=== PATIENT | male | born 1930 | race Caucasian/White ===

== ENCOUNTER → 2016-04-19 | Outpatient (CLI) | payer MEDICARE, BC ==
[2016-04-19 12:43] LABS: CHLORIDE,CL 101 mmol/L (98-110); SODIUM,NA 137 mmol/L (136-146)
== END | disposition home or self-care (01) ==
LOC: MW.CHFP 11:52
PROVIDERS: ATTEND Emergency Medicine
DX: R10.9 Unspecified abdominal pain (principal); R63.4 Abnormal weight loss; R06.09 Other forms of dyspnea; R42 Dizziness and giddiness
CPT/HCPCS: 36415; 80053; 84443; G0463

== ENCOUNTER → 2016-04-27 | Outpatient (CLI) | payer MEDICARE, BC ==
[~2016-04-27] MED LIST: Iopamidol 755 MG/ML 500 ML Multipack Bottle IVPUSH STA
--- NOTE | 2016-04-28 10:27 | CT ---
EXAM DATE: 04/27/16 PATIENT'S AGE: 86 Patient: MCKENZIE ELDER Facility: [place], [place] Site . Site : 1930 Study: CT Abdomen/Pelvis [id number]/31/2017 5:50:24 PM Ordering Physician: Judy Luong Final Report: INDICATION: Abdominal pain. Technique: Contrast-enhanced CT abdomen pelvis with coronal sagittal reformat images obtained. Comparison: No comparison studies are available. Findings: Normal heart size. Coronary artery calcifications. Mild basilar fibrotic change. No effusion. No pericardial effusion. Multiple cysts are seen in the liver. No biliary dilatation. Spelled granulomas. Pancreas is unremarkable. Bilateral diffuse thickening of the adrenal gland [id number] without discrete nodule seen. Bilateral renal cysts. No hydronephrosis. Left posterior cortical thinning /scarring. No nephrolithiasis. Infrarenal abdominal aortic aneurysm measuring 5 cm on image 77 with mural thrombus. Mild prominence of the common iliac arteries measuring 1.6 on the right and 1.3 on the left. Urinary bladder is unremarkable. Prostate gland mildly prominent. Diverticulosis. The bowel is unremarkable. Mild fat containing umbilical hernia. Diffuse moderate to advanced degenerative changes of the lumbar spine with grade 2 anterolisthesis of L5 on S1. Postsurgical changes of the left hip. Impression: 1. Infrarenal 5 cm abdominal aortic aneurysm. Mild prominence of the bilateral common iliac arteries measuring 1.6 on the right and 1.3 cm on the left. 2. No acute findings in the abdomen or pelvis. 3. Diverticulosis. 4. Liver cysts and renal cysts. Dictated by Anjana Matos MD @ Apr 28 2016 7:50AM (Electronic Signature) Report Signed by Proxy and Original Signed Document filed in the Medical Record. GARRICK
== END | disposition home or self-care (01) ==
LOC: MW.CHFP 13:17
PROVIDERS: ATTEND Physician Assistant
DX: R10.9 Unspecified abdominal pain (principal); I71.4 Abdominal aortic aneurysm, without rupture; K57.90 Diverticulosis of intestine, part unspecified, without perforation or abscess without bleeding; K76.89 Other specified diseases of liver; N28.1 Cyst of kidney, acquired; R63.4 Abnormal weight loss; N39.0 Urinary tract infection, site not specified
CPT/HCPCS: 74177; 81001; Q9967

== ENCOUNTER 2016-05-26 13:21 | Emergency (ER) | payer MEDICARE, BC ==
--- NOTE | 2016-05-26 13:41 | EDM.PDOC ---
ED HPI GENERAL MEDICAL PROBLEM - General Chief Complaint: Genitourinary Problem Stated Complaint: UNK Time Seen by Provider: 05/26/16 13:34 - History of Present Illness INITIAL COMMENTS - FREE TEXT/NARRATIVE: HISTORY AND PHYSICAL: History of present illness: The patient is an 86-year-old male with a history of a left femur fracture on May 02 and was transferred after initially presenting here. He is being followed with his rehabilitation at [facility] and presents today in acute urinary retention. According to reports he had a Rojas in place which was removed yesterday and he has only been dribbling urine since that time. Bladder scan at the alf revealed 800 cc of urine in the attempted [address] Rojas and were unable so he was sent here to our ER for Rojas catheter placement. The patient has a history of fluid retention and a joint effusion on his right knee and had a venous Doppler of his leg just recently on May 24 that was negative. The patient has no other complaints and in fact states that he doesn't even feel like his bladder is distended. The patient has an appointment for followup with a urologist, Dr. Paz. He had prostate surgery many years ago here with our urologist but does not follow with him anymore. Review of systems: As per history of present illness and below otherwise all systems reviewed and negative. Past medical history: As per history of present illness and as reviewed below otherwise noncontributory. Surgical history: As per history of present illness and as reviewed below otherwise noncontributory. Social history: No reported history of drug or alcohol abuse. Family history: As per history of present illness and as reviewed below otherwise noncontributory. Physical exam: General: Well-developed elderly man who is nontoxic and in no overt distress. His vitals have been reviewed by me HEENT: Atraumatic, normocephalic, negative for conjunctival pallor or scleral icterus, mucous membranes moist, throat clear, neck supple, nontender, trachea midline. Lungs: Clear to auscultation with slightly diminished breath sounds at the bases , breath sounds equal bilaterally, chest nontender. Heart: S1S2, regular in rhythm no overt murmurs Abdomen: Soft, nondistended, nontender. Hypoactive bowel sounds Pelvis: Stable nontender. Genitourinary: Deferred. Rectal: Deferred. Extremities: Atraumatic splints are seen on bilateral legs and were not removed Neurovascular unremarkable. Neuro: Awake, alert, oriented. Motor and sensory unremarkable throughout. Exam nonfocal. Diagnostics: Therapeutics: rojas placement Rojas was placed by nursing without difficulty and the patient will be sent back to the alf Impression: Urinary retention after Rojas removal with history of same Definitive disposition and diagnosis as appropriate pending reevaluation and review of above. - Related Data Allergies Allergy/AdvReac Type Severity Reaction Status Date / Time acyclovir Allergy Other Verified 05/02/16 00:26 latanoprost Allergy Other Verified 05/02/16 02:25 sulfamethoxazole Allergy Other Verified 05/02/16 02:25 [From Bactrim] trimethoprim [From Bactrim] Allergy Other Verified 05/02/16 02:25 Home Meds: Home Meds Acetaminophen [Tylenol] 325 mg PO 05/02/16 [History] Albuterol Sulfate [Proventil Hfa] 6.7 gm IH 05/02/16 [History] Aspirin 81 mg PO BRK 05/02/16 [History] Calcium Citrate/Vitamin D3 [Calcium Cit-Vit D 250-200] 1 each PO 05/02/16 [ History] Fluticasone Propionate [Flovent Diskus] 50 mcg IH 05/02/16 [History] Hydrochlorothiazide 50 mg PO DAILY 05/02/16 [History] Lisinopril 40 mg PO DAILY 05/02/16 [History] Metoprolol Tartrate 100 mg PO DAILY 05/02/16 [History] Multivitamin with Minerals [Multiple Vitamin] 1 tab PO DAILY 05/02/16 [History] Omeprazole 20 mg PO 05/02/16 [History] PEG 400/Hypromellose/Glycerin [Artificial Tears Drops] 1 drop EYEBOTH ASDIRECTED PRN 05/02/16 [History] Potassium Citrate [Potassium Citrate ER] 10 meq PO 05/02/16 [History] Sertraline HCl 100 mg PO 05/02/16 [History] Triamcinolone Acetonide [Triamcinolone Acetonide 0.1% Crm] 1 dose TOP ASDIRECTED 05/02/16 [History] Past Medical History HEENT History: Reports: Impaired vision Cardiovascular History: Reports: Hypertension Respiratory History: Reports: None Gastrointestinal History: Reports: None, Other (see below) Other Gastrointestinal History: pt reports abdominal aneurism Genitourinary History: Reports: None Neurological History: Reports: None Psychiatric History: Reports: None - Infectious Disease History Infectious Disease History: Reports: None - Past Surgical History HEENT Surgical History: Reports: Eye surgery Male Surgical History: Reports: None Musculoskeletal Surgical History: Reports: Hip replacement Social & Family History - Family History Family Medical History: Noncontributory - Tobacco Use Smoking Status *Q: Former Smoker - Recreational Drug Use Recreational Drug Use: No ED ROS GENERAL - Review of Systems Review Of Systems: ROS reveals no pertinent complaints other than HPI. ED EXAM, GENERAL - Physical Exam Exam: See Below (See dictation) Course - Vital Signs Last Recorded V/S: Last Vital Signs Temp 37.2 C 05/26/16 13:43 Pulse 89 05/26/16 13:43 Resp 16 05/26/16 13:43 BP 139/78 05/26/16 13:43 Pulse Ox 94 L 05/26/16 13:43 - Orders/Labs/Meds Orders: Active Orders 24 hr Category Date Time Status Insert Rojas Catheter [Insert Urinary Catheter] [OM.PC] Care 05/26/16 13:45 Ordered Q24H Urinary Catheter Assessment [RC] ASDIRECTED Care 05/26/16 13:37 Active Departure - Departure Time of Disposition: 14:22 Disposition: DC/Tfer to SNF 03 Condition: good Clinical Impression: Retention of urine Referrals: PCP,None [Primary Care Provider] - Forms: ED Department Discharge Additional Instructions: The following information is given to patients seen in the emergency department who are being discharged to home. This information is to outline your options for follow-up care. We provide all patients seen in our emergency department with a follow-up referral. The need for follow-up, as well as the timing and circumstances, are variable depending upon the specifics of your emergency department visit. If you don't have a primary care physician on staff, we will provide you with a referral. We always advise you to contact your personal physician following an emergency department visit to inform them of the circumstance of the visit and for follow-up with them and/or the need for any referrals to a consulting specialist. The emergency department will also refer you to a specialist when appropriate. This referral assures that you have the opportunity for followup care with a specialist. All of these measure are taken in an effort to provide you with optimal care, which includes your followup. Under all circumstances we always encourage you to contact your private physician who remains a resource for coordinating your care. When calling for followup care, please make the office aware that this follow-up is from your recent emergency room visit. If for any reason you are refused follow-up, please contact the [facility] emergency department at and ask to speak to the emergency department charge nurse. [address] [id number] [facility] [address] [place], [place] [id number] Please keep your followup appointment with the urologist that you have scheduled Dr. Paz and follow up with primary care as needed and directed. Return here as needed and as discussed peer - My Orders Last 24 Hours: My Active Orders 05/26/16 13:37 Urinary Catheter Assessment [RC] ASDIRECTED 05/26/16 13:45 Insert Rojas Catheter [Insert Urinary Catheter] [OM.PC] Q24H - Assessment/Plan Last 24 Hours: My Active Orders 05/26/16 13:37 Urinary Catheter Assessment [RC] ASDIRECTED 05/26/16 13:45 Insert Rojas Catheter [Insert Urinary Catheter] [OM.PC] Q24H
[2016-05-26 16:05] VITALS: BP 132/79
== END 2016-05-26 14:55 ==
LOC: MW.ED 13:21
DX: R33.9 Retention of urine, unspecified (principal); M25.461 Effusion, right knee; I10 Essential (primary) hypertension; Z88.6 Allergy status to analgesic agent; Z88.2 Allergy status to sulfonamides; Z88.8 Allergy status to other drugs, medicaments and biological substances; Z79.899 Other long term (current) drug therapy; Z87.891 Personal history of nicotine dependence
CPT/HCPCS: 99282; 99283

== ENCOUNTER 2016-06-09 15:24 | Emergency (ER) | payer MEDICARE, BC ==
--- NOTE | 2016-06-09 16:10 | EDM.PDOC ---
ED HPI RENAL/ - General Chief Complaint: Genitourinary Problem Stated Complaint: UNK Time Seen by Provider: 06/09/16 16:02 - History of Present Illness INITIAL COMMENTS - FREE TEXT/NARRATIVE: HISTORY AND PHYSICAL: [86-year-old male sent from home with some confusion inability to urinate although he has indwelling catheter] History of Present Illness: [3 weeks ago patient was sent here for catheter replacement] Patient has broken legs/Lilo lift is utilized Review of Systems: As per history of present illness and below otherwise all systems reviewed and negative. Past medical history: As per history of present illness and as reviewed below otherwise noncontributory. Surgical history: As per history of present illness and as reviewed below otherwise noncontributory. Social history: No reported history of drug or alcohol abuse. Family history: As per history of present illness and as reviewed below otherwise noncontributory. Physical exam: Alert pleasant gentleman. HEENT: Atraumatic, normocehpalic, pupils reactive, negative for conjunctival pallor or scleral icterus, mucous membranes moist, throat clear, neck supple, nontender, trachea midline. Lungs: Clear to auscultation, breath sounds equal bilaterally, chest non tender. Heart: S1S2, regular, negative for clicks, rubs, or JVD. Abdomen: Soft, nondistended, nontender. Negative for masses or hepatossplenmegaly. Negative for costovertebral tenderness. Pelvis: Stable nontender. Genitourinary: Dark urine is present. Unable to air. To nursing staff has replaced the catheter immediately flow of 1000 catheter was then clamped urine sample was sent to lab for urinalysis Rectal: Deferred Extremities: Atraumatic, negative for cords or calf pain. Neurovascular unremarkable. Neuro: Awake, alert, oriented. Cranial nerves II through XII unremarkable. Cerebellum unremarkable. Motor and sensory unremarkable throughout. Exam nonfocal. Diagnostics: [] Therapeutics: [] Impression: []UTI Plan: [Cipro 500 mg 1 tab bid X 7 days] Definitive disposition and diagnosis as appropriate pending reevaluation and review of above. - Related Data Allergies/ADRs: Allergies Allergy/AdvReac Type Severity Reaction Status Date / Time acyclovir Allergy Other Verified 06/09/16 15:52 latanoprost Allergy Other Verified 06/09/16 15:52 sulfamethoxazole Allergy Other Verified 06/09/16 15:52 [From Bactrim] trimethoprim [From Bactrim] Allergy Other Verified 06/09/16 15:52 Home Meds: Home Meds Aspirin 81 mg PO BRK 05/02/16 [History] Fluticasone Propionate [Flovent Diskus] 50 mcg NASBOTH BID 05/02/16 [History] Omeprazole 20 mg PO DAILY 05/02/16 [History] PEG 400/Hypromellose/Glycerin [Artificial Tears Drops] 1 drop EYEBOTH ASDIRECTED PRN 05/02/16 [History] Sertraline HCl 100 mg PO DAILY 05/02/16 [History] Acetaminophen [Tylenol Extra Strength] 1,000 mg PO Q6H PRN 05/26/16 [History] Dorzolamide HCl/Timolol Maleat [Dorzolamide-Timolol Eye Drops] 1 drop ETTUBE BID 05/26/16 [History] Lisinopril 20 mg PO DAILY 05/26/16 [History] Metoprolol Succinate [Toprol XL 50mg] 50 mg PO DAILY 05/26/16 [History] Potassium Chloride [Klor-Con 10] 10 meq PO BIDMEALS 05/26/16 [History] Tamsulosin [Flomax] 0.4 mg PO DAILY 05/26/16 [History] Ciprofloxacin HCl [Cipro] 500 mg PO BID #14 tablet 06/09/16 [Rx] Past Medical History HEENT History: Reports: Impaired vision Cardiovascular History: Reports: Afib, Hypertension Respiratory History: Reports: None Gastrointestinal History: Reports: None, Other (see below) Other Gastrointestinal History: pt reports abdominal aneurism Genitourinary History: Reports: Retention, urinary Musculoskeletal History: Reports: Other (see below) Other Musculoskeletal History: left left fracture Neurological History: Reports: None Psychiatric History: Reports: None - Infectious Disease History Infectious Disease History: Reports: Other (see below) Other Infectious Disease History: unknown - Past Surgical History HEENT Surgical History: Reports: Eye surgery Male Surgical History: Reports: Other (see below) Other Male Surgeries/Procedures: prostate surgery Musculoskeletal Surgical History: Reports: Hip replacement, Other (see below) Other Musculoskeletal Surgeries/Procedures:: left leg surgery Social & Family History - Family History Family Medical History: Noncontributory - Tobacco Use Smoking Status *Q: Unknown Ever Smoked - Recreational Drug Use Recreational Drug Use: No ED ROS GENERAL - Review of Systems Review Of Systems: ROS reveals no pertinent complaints other than HPI. ED EXAM, RENAL/ - Physical Exam Exam: See Below (see dictation) Course - Vital Signs Last Recorded V/S: Last Vital Signs Temp 35.5 C 06/09/16 15:53 Pulse 92 06/09/16 15:53 Resp 16 06/09/16 15:53 BP 129/79 06/09/16 15:53 Pulse Ox 95 06/09/16 15:53 - Orders/Labs/Meds Orders: Active Orders 24 hr Category Date Time Status Bladder Irrigation [RC] ASDIRECTED Care 06/09/16 16:10 Active Bladder Scan [RC] ONETIME Care 06/09/16 16:10 Active Ciprofloxacin [Ciprofloxacin HCl] Med 06/09/16 17:49 Once 500 mg PO ONETIME ONE Labs: Laboratory Tests 06/09/16 Range/Units 17:20 Urine Color DARK YELLOW Urine Appearance CLOUDY Urine pH 7.0 (5.0-8.0) Ur Specific [place] 1.010 (1.001-1.035) Urine Protein 30 (NEGATIVE) mg/dL Urine Glucose (UA) NEGATIVE (NEGATIVE) mg/dL Urine Ketones NEGATIVE (NEGATIVE) mg/dL Urine Occult Blood LARGE H (NEGATIVE) Urine Nitrite NEGATIVE (NEGATIVE) Urine Bilirubin SMALL H (NEGATIVE) Urine Ictotest NEGATIVE Urine Urobilinogen 2.0 H (<2.0) EU/dL Ur Leukocyte Esterase SMALL (NEGATIVE) Urine RBC 45-50 (0-2/HPF) Urine WBC 5-10 (0-5/HPF) Ur Epithelial Cells OCCASIONAL (NONE-FEW) Calcium Oxalate Crystal FEW (NEGATIVE) Amorphous Sediment LIGHT (NEGATIVE) Urine Bacteria 2+ H (NEGATIVE) Meds: Medications Discontinued Medications Generic Name Dose Route Start Last Admin Trade Name Freq PRN Reason Stop Dose Admin Ciprofloxacin 500 mg 06/09/16 17:49 Ciprofloxacin Hcl PO 06/09/16 17:50 ONETIME ONE Departure - Departure Time of Disposition: 17:53 Disposition: Home, Self-Care 01 Condition: good Clinical Impression: UTI, Urinary tract infectious disease, Retention of urine Prescriptions: Ciprofloxacin HCl [Cipro] 500 mg PO BID #14 tablet Forms: ED Department Discharge Additional Instructions: The following information is given to patients seen in the emergency department who are being discharged to home. This information is to outline your options for follow-up care. We provide all patients seen in our emergency department with a follow-up referral. The need for follow-up, as well as the timing and circumstances, are variable depending upon the specifics of your emergency department visit. If you don't have a primary care physician on staff, we will provide you with a referral. We always advise you to contact your personal physician following an emergency department visit to inform them of the circumstance of the visit and for follow-up with them and/or the need for any referrals to a consulting specialist. The emergency department will also refer you to a specialist when appropriate. This referral assures that you have the opportunity for followup care with a specialist. All of these measure are taken in an effort to provide you with optimal care, which includes your followup. Under all circumstances we always encourage you to contact your private physician who remains a resource for coordinating your care. When calling for followup care, please make the office aware that this follow-up is from your recent emergency room visit. If for any reason you are refused follow-up, please contact the [facility] emergency department at and asked to speak to the emergency department charge nurse. Prescription has been electronically sent to service drug Follow up with your PCP - My Orders Last 24 Hours: My Active Orders 06/09/16 16:10 Bladder Irrigation [RC] ASDIRECTED Bladder Scan [RC] ONETIME 06/09/16 17:49 Ciprofloxacin [Ciprofloxacin HCl] 500 mg PO ONETIME ONE - Assessment/Plan Last 24 Hours: My Active Orders 06/09/16 16:10 Bladder Irrigation [RC] ASDIRECTED Bladder Scan [RC] ONETIME 06/09/16 17:49 Ciprofloxacin [Ciprofloxacin HCl] 500 mg PO ONETIME ONE
[2016-06-09] MEDS ORDERED: Ciprofloxacin 500 MG Tab PO ONE (17:49)
[2016-06-09 19:17] VITALS: BP 109/60
== END 2016-06-09 18:20 | disposition home or self-care (01) ==
LOC: MW.ED 15:24
DX: N39.0 Urinary tract infection, site not specified (principal); I48.91 Unspecified atrial fibrillation; I10 Essential (primary) hypertension; Z88.2 Allergy status to sulfonamides; Z88.6 Allergy status to analgesic agent; Z88.8 Allergy status to other drugs, medicaments and biological substances; Z79.899 Other long term (current) drug therapy; Z90.89 Acquired absence of other organs; Z98.890 Other specified postprocedural states
CPT/HCPCS: 81001; 87086; 99283; A9270; 87088; 87186

== ENCOUNTER 2017-11-29 16:48 | Emergency (ER) | payer MEDICARE, BC, OTHER | END 2017-11-29 17:08 | disposition left against medical advice (07) | LOC: MW.ED 16:48 | DX: Z53.21 Procedure and treatment not carried out due to patient leaving prior to being seen by health care provider (principal) ==